=== PATIENT | female | born 1970 | race Two or more races ===

== ENCOUNTER 2017-03-12 08:29 | Emergency (ER) | payer OTHER ==
[~2017-03-12] VITALS: Ht 160 cm; Wt 82.0 kg
[2017-03-12 08:31] VITALS: BP 125/91
[2017-03-12] MEDS ORDERED: ACETAMINOPHEN 325MG TABLET PO ONE (09:15)
== END 2017-03-12 11:45 | disposition home or self-care (01) ==
LOC: ER 08:29
DX: M54.2 Cervicalgia (principal); M54.5 Low back pain; V43.52XA Car driver injured in collision with other type car in traffic accident, initial encounter; Y93.89 Activity, other specified; Y92.488 Other paved roadways as the place of occurrence of the external cause; Z90.2 Acquired absence of lung [part of]; J45.909 Unspecified asthma, uncomplicated; M51.36 Other intervertebral disc degeneration, lumbar region
CPT/HCPCS: 72050; 72070; 72100; 81025; 99284